=== PATIENT | male | born 1950 | race Caucasian/White ===

== ENCOUNTER 2022-10-14 06:18 | Inpatient (IN) | payer MEDICARE ==
[2022-10-14 07:13] LABS: #Eosinphils 0.2 thou/uL (0.0-0.7); #Lymphocytes 0.8 thou/uL (1.20-3.40); #Monocytes 0.2 thou/uL (0.11-0.59); #Neutrophils 5.2 thou/uL (1.40-6.50); %Basophils 0.2 % (0.0-1.0); %Eosinophils 2.7 % (0.0-10.0); %Lymphocytes 12.7 % (21.0-51.0); %Monocytes 3.8 % (0.0-10.0); %Neutrophils 80.7 % (42.0-75.0); Hemoglobin 11.2 g/dL (14.0-18.0); Mean Corpuscular HGB CONC 34.3 g/dL (32.0-36.0); Mean Corpuscular Hemoglobin 32.4 pg (27.0-31.0); Mean Corpuscular Volume 94.4 fl (78.0-98.0); Mean Platelet Volume 7.2 fL (7.4-10.4); Platelet Count 283 10x3/uL (130-400); RBC Distribution Width 11.8 % (11.5-14.5); Red Blood Cell (RBC) Count 3.46 mill/uL (4.70-6.10); White Blood Cell (WBC) Count 6.4 10x3/uL (4.8-10.8)
[2022-10-14] MEDS ORDERED: diphenhydrAMINE 50 MG/ML VIAL ONE (07:17)
[2022-10-14] MEDS ORDERED: Ketorolac Tromethamine 30 MG/ML VIAL ONE ×2 (07:17→16:49)
[2022-10-14] MEDS ORDERED: hydrALAZINE 20 MG/ML VIAL ONE (07:17)
[2022-10-14] MEDS ORDERED: Metoclopramide HCl 10 MG/2 ML VIAL ONE (07:17)
[2022-10-14 07:32] LABS: ALT (SGPT) Less than 7 U/L (8-55); AST (SGOT) 12 U/L (5-34); Albumin 2.7 g/dL (3.4-4.8); Alkaline Phosphatase 90 U/L (40-110); Anion Gap 14 mmol/L (10-20); BUN (Urea Nitrogen) 10 mg/dL (8.4-25.7); Bilirubin, Total 0.5 mg/dL (0.2-1.2); Calc. Creatinine Clearance 0 mL/min (70-130); Calcium 8.6 mg/dL (7.8-10.44); Carbon Dioxide 22 mmol/L (23-31); Chloride 103 mmol/L (98-107); Estimated GFR 75; Globulin 4.5 g/dL (2.4-3.5); Glucose 100 mg/dL (83-110); Potassium 4.6 mmol/L (3.5-5.1); Protein, Total 7.2 g/dL (5.8-8.1); Sodium 134 mmol/L (136-145)
[2022-10-14] MEDS ORDERED: Ipratropium/Albuterol 3 ML NEB ONE (08:34)
[2022-10-14] MEDS ORDERED: Magnesium 2 GM/50 ML BAG (IN WATER) ONE (09:27)
[2022-10-14 11:46] LABS: Troponin I 0.014 ng/mL (< 0.028)
[2022-10-14] MEDS ORDERED: Lidocaine 1% w/Epinephrine 1:100K 20 ML VIAL ONE (12:13)
[2022-10-14] MEDS ORDERED: Acetaminophen/Codeine 30-300mg Tablet PO SCH (14:00)
[2022-10-14] MEDS ORDERED: Acetaminophen/Codeine 30-300mg Tablet ONE (14:59)
[2022-10-14] MEDS ORDERED: Ondansetron ODT 4 MG TAB PO PRN (15:40)
[2022-10-14] MEDS ORDERED: hydrALAZINE 20 MG/ML VIAL SLOW IVP PRN (15:40)
[2022-10-14] MEDS ORDERED: Ondansetron PF 4 MG/2 ML Vial IVP PRN (15:40)
[2022-10-14] MEDS ORDERED: Labetalol HCl 100 MG/20 ML VIAL SLOW IVP PRN (15:40)
[2022-10-14] MEDS ORDERED: CEFAZOLIN 2 GM VIAL IVPB SCH (15:40)
[2022-10-14] MEDS ORDERED: HYDROcodone/Acetaminophen 10/325 mg Tablet PO PRN ×2 (15:40)
[2022-10-14] MEDS ORDERED: Albuterol HFA (OR) 200 PUFF INH INH PRN (15:59)
[2022-10-14] MEDS: Ketorolac Tromethamine 30 MG/ML VIAL IVP SCH (16:57)
[2022-10-14] MEDS ORDERED: Ketorolac Tromethamine 30 MG/ML VIAL IVP SCH (18:00)
[2022-10-14] MEDS: CEFAZOLIN 2 GM in Sodium Chloride 0.9% 100 ML IVPB SCH (18:25)
[2022-10-14 18:46] VITALS: BMI 27.1
[2022-10-14] MEDS: cloNIDine 0.1 MG TAB PO SCH (21:49)
[2022-10-14] MEDS: Famotidine 20 MG TAB PO SCH (21:49)
[2022-10-14] MEDS: Senokot S 8.6-50 MG TAB PO SCH (21:49)
[2022-10-15] MEDS: CEFAZOLIN 2 GM in Sodium Chloride 0.9% 100 ML IVPB SCH ×3 (00:31→16:19)
[2022-10-15] MEDS: Ketorolac Tromethamine 30 MG/ML VIAL IVP SCH ×5 (00:34→18:04)
[2022-10-15] MEDS: Mometasone 100 MCG/PUFF (1 INHALER) INH SCH ×3 (02:26→19:00)
[2022-10-15] MEDS: Acetaminophen 500 MG TAB PO PRN (06:26)
[2022-10-15 07:58] LABS: #Eosinphils 0.1 thou/uL (0.0-0.7); #Lymphocytes 0.9 thou/uL (1.20-3.40); #Monocytes 0.4 thou/uL (0.11-0.59); #Neutrophils 5.6 thou/uL (1.40-6.50); %Basophils 0.4 % (0.0-1.0); %Eosinophils 1.2 % (0.0-10.0); %Lymphocytes 13.4 % (21.0-51.0); %Monocytes 5.2 % (0.0-10.0); %Neutrophils 79.9 % (42.0-75.0); Hemoglobin 10.5 g/dL (14.0-18.0); Mean Corpuscular Hemoglobin 30.1 pg (27.0-31.0); Mean Corpuscular Volume 94.1 fl (78.0-98.0); Mean Platelet Volume 6.7 fL (7.4-10.4); Platelet Count 304 10x3/uL (130-400); RBC Distribution Width 11.8 % (11.5-14.5)
[2022-10-15 07:59] LABS: Anion Gap 12 mmol/L (10-20); BUN (Urea Nitrogen) 13 mg/dL (8.4-25.7); Calc. Creatinine Clearance 87 mL/min (70-130); Calcium 8.3 mg/dL (7.8-10.44); Carbon Dioxide 23 mmol/L (23-31); Chloride 103 mmol/L (98-107); Estimated GFR 81; Glucose 88 mg/dL (83-110); Sodium 134 mmol/L (136-145)
[2022-10-15] MEDS: Atorvastatin Calcium 10 MG TAB PO SCH (08:36)
[2022-10-15] MEDS: FLUoxetine HCl 20 MG CAP PO SCH (08:36)
[2022-10-15] MEDS: Famotidine 20 MG TAB PO SCH ×2 (08:36→20:21)
[2022-10-15] MEDS: Senokot S 8.6-50 MG TAB PO SCH ×2 (08:37→20:21)
[2022-10-15] MEDS: Ezetimibe 10 MG TAB PO SCH (08:37)
[2022-10-15] MEDS: cloNIDine 0.1 MG TAB PO SCH ×2 (08:37→20:21)
[2022-10-15] MEDS: tiZANidine HCl 4 MG TAB PO PRN (09:28)
[2022-10-16] MEDS: Ketorolac Tromethamine 30 MG/ML VIAL IVP SCH ×4 (00:29→19:05)
[2022-10-16] MEDS: CEFAZOLIN 2 GM in Sodium Chloride 0.9% 100 ML IVPB SCH ×3 (01:26→17:21)
[2022-10-16 06:56] LABS: #Eosinphils 0.1 thou/uL (0.0-0.7); #Monocytes 0.3 thou/uL (0.11-0.59); #Neutrophils 4.5 thou/uL (1.40-6.50); %Basophils 0.4 % (0.0-1.0); %Eosinophils 2.4 % (0.0-10.0); %Lymphocytes 16.2 % (21.0-51.0); %Monocytes 5.1 % (0.0-10.0); %Neutrophils 75.9 % (42.0-75.0); Hemoglobin 11.3 g/dL (14.0-18.0); Mean Corpuscular HGB CONC 33.4 g/dL (32.0-36.0); Mean Corpuscular Volume 92.8 fl (78.0-98.0); Platelet Count 264 10x3/uL (130-400); RBC Distribution Width 11.9 % (11.5-14.5); Red Blood Cell (RBC) Count 3.64 mill/uL (4.70-6.10); White Blood Cell (WBC) Count 5.9 10x3/uL (4.8-10.8)
[2022-10-16 07:07] LABS: Anion Gap 13 mmol/L (10-20); BUN (Urea Nitrogen) 12 mg/dL (8.4-25.7); Calc. Creatinine Clearance 101 mL/min (70-130); Calcium 8.4 mg/dL (7.8-10.44); Carbon Dioxide 22 mmol/L (23-31); Chloride 103 mmol/L (98-107); Estimated GFR 92; Glucose 91 mg/dL (83-110); Magnesium 1.8 mg/dL (1.6-2.6); Potassium 3.7 mmol/L (3.5-5.1); Sodium 134 mmol/L (136-145)
[2022-10-16] MEDS: Mometasone 100 MCG/PUFF (1 INHALER) INH SCH ×2 (08:44→18:40)
[2022-10-16] MEDS ORDERED: Sacubitril 49 MG/Valsartan 51 MG TABLET PO SCH (09:10)
[2022-10-16] MEDS: Famotidine 20 MG TAB PO SCH ×2 (09:20→20:55)
[2022-10-16] MEDS: FLUoxetine HCl 20 MG CAP PO SCH (09:21)
[2022-10-16] MEDS: cloNIDine 0.1 MG TAB PO SCH ×2 (09:21→20:55)
[2022-10-16] MEDS: Senokot S 8.6-50 MG TAB PO SCH ×2 (09:21→20:54)
[2022-10-16] MEDS: Ezetimibe 10 MG TAB PO SCH (09:21)
[2022-10-16] MEDS ORDERED: Aspirin 81 mg Enteric Coated Tablet PO SCH (09:23)
[2022-10-16] MEDS: Atorvastatin Calcium 10 MG TAB PO SCH (09:37)
[2022-10-16] MEDS ORDERED: Magnevist 469MG/ML 20 ML VIAL ONE (09:55)
[2022-10-16] MEDS ORDERED: Spironolactone 25 MG TAB PO SCH (16:45)
[2022-10-16] MEDS: Carvedilol 6.25 MG TAB PO SCH (17:21)
[2022-10-16] MEDS: tiZANidine HCl 4 MG TAB PO PRN (20:54)
[2022-10-16] MEDS: Atorvastatin Calcium 40 MG TAB PO SCH (20:54)
[2022-10-16] MEDS: Sacubitril 49 MG/Valsartan 51 MG TABLET PO SCH (20:55)
[2022-10-16] MEDS: Icosapent Ethyl 1 GM CAPSULE PO SCH (20:56)
[2022-10-16] MEDS ORDERED: Magnesium Oxide 400 MG TAB PO SCH (21:00)
[2022-10-16] MEDS ORDERED: Electrolyte Replacement Protocol 1 EACH FS SCH (22:45)
[2022-10-16] MEDS ORDERED: Magnesium 2 GM/50 ML(in water) 2 GM in Premix Bag 1 BAG IVPB SCH (23:30)
[2022-10-17] MEDS: CEFAZOLIN 2 GM in Sodium Chloride 0.9% 100 ML IVPB SCH ×2 (00:15→17:08)
[2022-10-17] MEDS: Ketorolac Tromethamine 30 MG/ML VIAL IVP SCH ×5 (00:16→23:46)
[2022-10-17 05:26] LABS: #Eosinphils 0.2 thou/uL (0.0-0.7); #Lymphocytes 1.1 thou/uL (1.20-3.40); #Monocytes 0.4 thou/uL (0.11-0.59); #Neutrophils 4.4 thou/uL (1.40-6.50); %Basophils 0.7 % (0.0-1.0); %Eosinophils 3.4 % (0.0-10.0); %Lymphocytes 18.1 % (21.0-51.0); %Monocytes 5.9 % (0.0-10.0); %Neutrophils 71.9 % (42.0-75.0); Mean Corpuscular HGB CONC 33.4 g/dL (32.0-36.0); Mean Corpuscular Hemoglobin 31.3 pg (27.0-31.0); Mean Corpuscular Volume 93.5 fl (78.0-98.0); Mean Platelet Volume 6.8 fL (7.4-10.4); Platelet Count 249 10x3/uL (130-400); RBC Distribution Width 11.9 % (11.5-14.5); Red Blood Cell (RBC) Count 3.52 mill/uL (4.70-6.10); White Blood Cell (WBC) Count 6.1 10x3/uL (4.8-10.8)
[2022-10-17 05:30] LABS: INR-International Normal Ratio 1.1; PTT 33.6 sec (22.9-36.1); Prothrombin Time 14.5 sec (12.0-14.7)
[2022-10-17 05:45] LABS: Anion Gap 9 mmol/L (10-20); BUN (Urea Nitrogen) 11 mg/dL (8.4-25.7); Calc. Creatinine Clearance 92 mL/min (70-130); Calcium 8.2 mg/dL (7.8-10.44); Carbon Dioxide 27 mmol/L (23-31); Chloride 103 mmol/L (98-107); Estimated GFR 87; Glucose 100 mg/dL (83-110); Magnesium 2.2 mg/dL (1.6-2.6); Potassium 3.7 mmol/L (3.5-5.1); Sodium 135 mmol/L (136-145)
[2022-10-17] MEDS ORDERED: Thrombin 5000 UNITS/5 ML VIAL ONE (06:40)
[2022-10-17] MEDS ORDERED: Bacitracin Zinc Ointment 30 gm TUBE ONE (06:40)
[2022-10-17] MEDS ORDERED: Vancomycin 1 GM VIAL ONE (06:40)
[2022-10-17] MEDS ORDERED: Fentanyl 250 MCG/5 ML VIAL ONE (06:53)
[2022-10-17] MEDS ORDERED: Dexmedetomidine 200 MCG/2 ML VIAL ONE (07:18)
[2022-10-17] MEDS: Mometasone 100 MCG/PUFF (1 INHALER) INH SCH ×2 (07:26→18:54)
[2022-10-17] MEDS ORDERED: CEFAZOLIN 1 GM VIAL ONE (07:30)
[2022-10-17] MEDS ORDERED: Sodium Chloride 0.9% 100 ML ONE (07:30)
[2022-10-17] MEDS ORDERED: CEFAZOLIN 2 GM VIAL ONE (07:31)
[2022-10-17] MEDS ORDERED: MINERAL OIL/WHITE PETROLATUM 3.5 GM TUBE ONE (07:56)
[2022-10-17] MEDS ORDERED: PROPOFOL 200 MG/20 ML VIAL ONE (08:03)
[2022-10-17] MEDS ORDERED: Dexamethasone 20 MG/5 ML VIAL ONE (08:03)
[2022-10-17] MEDS ORDERED: Lidocaine 1% PF 5 ML VIAL ONE (08:03)
[2022-10-17] MEDS ORDERED: Ondansetron PF 4 MG/2 ML Vial ONE (08:03)
[2022-10-17] MEDS ORDERED: Rocuronium Bromide 10 MG/ML (10ML VIAL) ONE (08:03)
[2022-10-17] MEDS ORDERED: ePHEDrine Sulfate 50 MG/10 ML VIAL ONE (08:03)
[2022-10-17] MEDS ORDERED: Aspirin 81 mg Enteric Coated Tablet PO SCH (09:00)
[2022-10-17] MEDS ORDERED: Promethazine HCl 25 MG/ML VIAL IM PRN (09:05)
[2022-10-17] MEDS ORDERED: Ondansetron HCl/PF 4 MG/2 ML Vial IVP PRN (09:05)
[2022-10-17] MEDS ORDERED: PACU-Morphine 4MG/ML VIAL SLOW IVP PRN (09:05)
[2022-10-17] MEDS ORDERED: SUGAMMADEX SODIUM 200 MG/2 ML VIAL ONE (09:12)
[2022-10-17] MEDS ORDERED: fentaNYL PF 100 MCG/2 ML SYRINGE ONE ×2 (10:05→10:49)
[2022-10-17] MEDS ORDERED: diphenhydrAMINE 25 MG CAP PO PRN (10:36)
[2022-10-17] MEDS ORDERED: Promethazine HCl 25 MG/ML VIAL IVPB PRN (10:36)
[2022-10-17] MEDS ORDERED: Morphine 2 MG/ML VIAL SLOW IVP PRN (10:36)
[2022-10-17] MEDS ORDERED: VANCOMYCIN IVPB PRN (10:39)
[2022-10-17] MEDS ORDERED: Labetalol HCl 100 MG/20 ML VIAL SLOW IVP PRN (10:42)
[2022-10-17] MEDS ORDERED: hydrALAZINE 20 MG/ML VIAL ONE (10:43)
[2022-10-17] MEDS ORDERED: fentaNYL 50 mcg/mL 1 mL Vial ONE ×2 (11:11→11:48)
[2022-10-17] MEDS ORDERED: Morphine 4 MG/ML VIAL ONE (12:02)
[2022-10-17] MEDS: Sodium Chloride 0.9% 1,000 ML IV SCH (12:07)
[2022-10-17] MEDS: Cefepime 2 GM in Sodium Chloride 0.9% 100 ML IVPB SCH ×2 (12:07→23:46)
[2022-10-17] MEDS ORDERED: Ketorolac Tromethamine 30 MG/ML VIAL ONE (13:08)
[2022-10-17] MEDS ORDERED: metroNIDAZOLE 500 MG/100 ML BAG ONE (13:18)
[2022-10-17] MEDS ORDERED: Acetaminophen/Codeine 30-300mg Tablet ONE (13:29)
[2022-10-17] MEDS: Acetaminophen/Codeine 30-300mg Tablet PO PRN ×2 (13:30→17:33)
[2022-10-17] MEDS: metroNIDAZOLE 500 MG in Premix Bag 1 BAG IVPB SCH ×2 (13:33→20:40)
[2022-10-17] MEDS ORDERED: diphenhydrAMINE 25 MG CAP ONE (13:50)
[2022-10-17] MEDS: tiZANidine HCl 4 MG TAB PO PRN ×2 (14:27→19:26)
[2022-10-17] MEDS: Carvedilol 6.25 MG TAB PO SCH ×2 (17:02→17:34)
[2022-10-17] MEDS: cloNIDine 0.1 MG TAB PO SCH ×2 (17:03→21:05)
[2022-10-17] MEDS: Magnesium Oxide 400 MG TAB PO SCH (17:03)
[2022-10-17] MEDS: Ezetimibe 10 MG TAB PO SCH (17:03)
[2022-10-17] MEDS: FLUoxetine HCl 20 MG CAP PO SCH (17:03)
[2022-10-17] MEDS: Famotidine 20 MG TAB PO SCH ×2 (17:03→20:35)
[2022-10-17] MEDS: Icosapent Ethyl 1 GM CAPSULE PO SCH (17:03)
[2022-10-17] MEDS: Senokot S 8.6-50 MG TAB PO SCH ×2 (17:04→20:35)
[2022-10-17] MEDS: Sacubitril 49 MG/Valsartan 51 MG TABLET PO SCH ×2 (17:04→20:35)
[2022-10-17] MEDS: Vancomycin 1 GM in Premix Bag 1 BAG IVPB SCH (17:34)
[2022-10-17] MEDS: hydrALAZINE 20 MG/ML VIAL SLOW IVP PRN (18:39)
[2022-10-17] MEDS: Atorvastatin Calcium 40 MG TAB PO SCH (20:35)
[2022-10-18] MEDS: Sodium Chloride 0.9% 1,000 ML IV SCH ×3 (00:23→17:02)
[2022-10-18 03:33] LABS: #Lymphocytes 0.7 thou/uL (1.20-3.40); #Monocytes 0.3 thou/uL (0.11-0.59); #Neutrophils 4.9 thou/uL (1.40-6.50); %Basophils 0.5 % (0.0-1.0); %Eosinophils 0.4 % (0.0-10.0); %Lymphocytes 12.2 % (21.0-51.0); %Monocytes 5.5 % (0.0-10.0); %Neutrophils 81.5 % (42.0-75.0); Hemoglobin 11.2 g/dL (14.0-18.0); Mean Corpuscular HGB CONC 34.3 g/dL (32.0-36.0); Mean Corpuscular Hemoglobin 32.6 pg (27.0-31.0); Platelet Count 228 10x3/uL (130-400); RBC Distribution Width 11.9 % (11.5-14.5); Red Blood Cell (RBC) Count 3.44 mill/uL (4.70-6.10)
[2022-10-18 03:58] LABS: Anion Gap 10 mmol/L (10-20); BUN (Urea Nitrogen) 12 mg/dL (8.4-25.7); Calc. Creatinine Clearance 96 mL/min (70-130); Calcium 8.4 mg/dL (7.8-10.44); Carbon Dioxide 24 mmol/L (23-31); Chloride 105 mmol/L (98-107); Estimated GFR 91; Glucose 114 mg/dL (83-110); Potassium 4.2 mmol/L (3.5-5.1); Sodium 135 mmol/L (136-145)
[2022-10-18] MEDS: hydrALAZINE 20 MG/ML VIAL SLOW IVP PRN (05:14)
[2022-10-18] MEDS: Vancomycin 1 GM in Premix Bag 1 BAG IVPB SCH ×2 (05:15→19:54)
[2022-10-18] MEDS: metroNIDAZOLE 500 MG in Premix Bag 1 BAG IVPB SCH ×3 (05:15→21:22)
[2022-10-18] MEDS: Ketorolac Tromethamine 30 MG/ML VIAL IVP SCH ×4 (05:16→23:26)
[2022-10-18] MEDS: Mometasone 100 MCG/PUFF (1 INHALER) INH SCH ×2 (07:47→19:41)
[2022-10-18] MEDS: FLUoxetine HCl 20 MG CAP PO SCH (08:20)
[2022-10-18] MEDS: Ezetimibe 10 MG TAB PO SCH (08:25)
[2022-10-18] MEDS: Carvedilol 6.25 MG TAB PO SCH ×2 (08:25→17:01)
[2022-10-18] MEDS: Famotidine 20 MG TAB PO SCH ×2 (08:25→21:22)
[2022-10-18] MEDS: Sacubitril 49 MG/Valsartan 51 MG TABLET PO SCH ×2 (08:26→21:21)
[2022-10-18] MEDS: cloNIDine 0.1 MG TAB PO SCH ×2 (08:26→21:21)
[2022-10-18] MEDS: Senokot S 8.6-50 MG TAB PO SCH ×2 (08:27→21:22)
[2022-10-18] MEDS: Magnesium Oxide 400 MG TAB PO SCH (08:28)
[2022-10-18] MEDS: Cefepime 2 GM in Sodium Chloride 0.9% 100 ML IVPB SCH ×2 (11:25→23:26)
[2022-10-18 18:45] LABS: Vancomycin, Trough 14.7 ug/mL
[2022-10-18] MEDS: Atorvastatin Calcium 40 MG TAB PO SCH (21:21)
[2022-10-19] MEDS: Sodium Chloride 0.9% 1,000 ML IV SCH ×2 (04:34→19:00)
[2022-10-19] MEDS: metroNIDAZOLE 500 MG in Premix Bag 1 BAG IVPB SCH ×3 (06:17→21:28)
[2022-10-19] MEDS: Ketorolac Tromethamine 30 MG/ML VIAL IVP SCH ×3 (06:17→17:38)
[2022-10-19] MEDS: Vancomycin 1 GM in Premix Bag 1 BAG IVPB SCH ×2 (06:18→17:38)
[2022-10-19] MEDS: Sacubitril 49 MG/Valsartan 51 MG TABLET PO SCH ×2 (08:33→20:49)
[2022-10-19] MEDS: Carvedilol 6.25 MG TAB PO SCH ×2 (08:34→17:38)
[2022-10-19] MEDS: cloNIDine 0.1 MG TAB PO SCH ×2 (08:34→20:50)
[2022-10-19] MEDS: FLUoxetine HCl 20 MG CAP PO SCH (08:34)
[2022-10-19] MEDS: Ezetimibe 10 MG TAB PO SCH (08:34)
[2022-10-19] MEDS: Senokot S 8.6-50 MG TAB PO SCH ×2 (08:34→20:52)
[2022-10-19] MEDS: Magnesium Oxide 400 MG TAB PO SCH (08:35)
[2022-10-19] MEDS: Famotidine 20 MG TAB PO SCH ×2 (08:35→20:51)
[2022-10-19] MEDS: Mometasone 100 MCG/PUFF (1 INHALER) INH SCH ×2 (08:39→21:39)
[2022-10-19] MEDS: Cefepime 2 GM in Sodium Chloride 0.9% 100 ML IVPB SCH (13:19)
[2022-10-19] MEDS: hydrALAZINE 20 MG/ML VIAL SLOW IVP PRN (13:28)
[2022-10-19] MEDS: Atorvastatin Calcium 40 MG TAB PO SCH (20:50)
[2022-10-19] MEDS: Tamsulosin HCl 0.4 MG CAP PO SCH (20:51)
[2022-10-20] MEDS: Cefepime 2 GM in Sodium Chloride 0.9% 100 ML IVPB SCH ×2 (00:03→13:32)
[2022-10-20] MEDS: Ketorolac Tromethamine 30 MG/ML VIAL IVP SCH (00:04)
[2022-10-20 05:14] LABS: #Basophils 0.1 thou/uL (0.0-0.2); #Eosinphils 0.2 thou/uL (0.0-0.7); #Monocytes 0.4 thou/uL (0.11-0.59); %Basophils 1.1 % (0.0-1.0); %Eosinophils 3.1 % (0.0-10.0); %Lymphocytes 18.1 % (21.0-51.0); %Monocytes 6.5 % (0.0-10.0); %Neutrophils 71.1 % (42.0-75.0); Hemoglobin 10.1 g/dL (14.0-18.0); Mean Corpuscular HGB CONC 33.5 g/dL (32.0-36.0); Mean Corpuscular Hemoglobin 31.4 pg (27.0-31.0); Mean Corpuscular Volume 93.9 fl (78.0-98.0); Mean Platelet Volume 7.2 fL (7.4-10.4); Platelet Count 211 10x3/uL (130-400); RBC Distribution Width 12.1 % (11.5-14.5); White Blood Cell (WBC) Count 5.6 10x3/uL (4.8-10.8)
[2022-10-20 05:35] LABS: ALT (SGPT) 10 U/L (8-55); AST (SGOT) 27 U/L (5-34); Albumin 2.4 g/dL (3.4-4.8); Alkaline Phosphatase 77 U/L (40-110); Anion Gap 9 mmol/L (10-20); BUN (Urea Nitrogen) 14 mg/dL (8.4-25.7); Bilirubin, Total 0.6 mg/dL (0.2-1.2); Calc. Creatinine Clearance 94 mL/min (70-130); Carbon Dioxide 24 mmol/L (23-31); Chloride 108 mmol/L (98-107); Estimated GFR 90; Globulin 3.5 g/dL (2.4-3.5); Glucose 90 mg/dL (83-110); Potassium 3.8 mmol/L (3.5-5.1); Protein, Total 5.9 g/dL (5.8-8.1); Sodium 137 mmol/L (136-145)
[2022-10-20] MEDS: metroNIDAZOLE 500 MG in Premix Bag 1 BAG IVPB SCH ×3 (05:48→21:23)
[2022-10-20] MEDS: Sodium Chloride 0.9% 1,000 ML IV SCH (05:49)
[2022-10-20 06:02] LABS: Vancomycin, Trough 19.9 ug/mL
[2022-10-20] MEDS: Vancomycin 1 GM in Premix Bag 1 BAG IVPB SCH ×2 (06:09→17:01)
[2022-10-20] MEDS: Mometasone 100 MCG/PUFF (1 INHALER) INH SCH ×2 (07:41→19:08)
[2022-10-20] MEDS ORDERED: Bisacodyl 5 MG TAB PO SCH (09:37)
[2022-10-20] MEDS: FLUoxetine HCl 20 MG CAP PO SCH (09:44)
[2022-10-20] MEDS: cloNIDine 0.1 MG TAB PO SCH ×2 (09:44→20:26)
[2022-10-20] MEDS: Carvedilol 6.25 MG TAB PO SCH ×2 (09:44→16:53)
[2022-10-20] MEDS: Sacubitril 49 MG/Valsartan 51 MG TABLET PO SCH ×2 (09:44→20:27)
[2022-10-20] MEDS: Ezetimibe 10 MG TAB PO SCH (09:44)
[2022-10-20] MEDS: Senokot S 8.6-50 MG TAB PO SCH ×2 (09:44→20:27)
[2022-10-20] MEDS: Famotidine 20 MG TAB PO SCH ×2 (09:44→20:26)
[2022-10-20] MEDS: Magnesium Oxide 400 MG TAB PO SCH (09:45)
[2022-10-20] MEDS: Finasteride 5 MG TAB PO SCH (09:45)
[2022-10-20] MEDS: Atorvastatin Calcium 40 MG TAB PO SCH (20:25)
[2022-10-20] MEDS: Tamsulosin HCl 0.4 MG CAP PO SCH (20:27)
[2022-10-20] MEDS: tiZANidine HCl 4 MG TAB PO PRN (20:32)
[2022-10-21] MEDS: Cefepime 2 GM in Sodium Chloride 0.9% 100 ML IVPB SCH (00:23)
[2022-10-21] MEDS: Vancomycin 1 GM in Premix Bag 1 BAG IVPB SCH (05:15)
[2022-10-21] MEDS: metroNIDAZOLE 500 MG in Premix Bag 1 BAG IVPB SCH (05:15)
[2022-10-21 05:39] LABS: #Eosinphils 0.2 thou/uL (0.0-0.7); #Lymphocytes 1.1 thou/uL (1.20-3.40); #Monocytes 0.4 thou/uL (0.11-0.59); %Basophils 0.3 % (0.0-1.0); %Eosinophils 3.4 % (0.0-10.0); %Monocytes 6.5 % (0.0-10.0); %Neutrophils 70.7 % (42.0-75.0); Hemoglobin 9.4 g/dL (14.0-18.0); Mean Corpuscular HGB CONC 32.1 g/dL (32.0-36.0); Mean Corpuscular Hemoglobin 30.4 pg (27.0-31.0); Mean Corpuscular Volume 94.6 fl (78.0-98.0); Mean Platelet Volume 6.9 fL (7.4-10.4); Platelet Count 220 10x3/uL (130-400); RBC Distribution Width 11.9 % (11.5-14.5); White Blood Cell (WBC) Count 5.6 10x3/uL (4.8-10.8)
[2022-10-21 06:09] LABS: Anion Gap 7 mmol/L (10-20); BUN (Urea Nitrogen) 13 mg/dL (8.4-25.7); Calc. Creatinine Clearance 0 mL/min (70-130); Carbon Dioxide 25 mmol/L (23-31); Chloride 109 mmol/L (98-107); Estimated GFR 91; Glucose 102 mg/dL (83-110); Potassium 3.8 mmol/L (3.5-5.1); Sodium 137 mmol/L (136-145)
[2022-10-21] MEDS: hydrALAZINE 20 MG/ML VIAL SLOW IVP PRN (07:38)
[2022-10-21] MEDS: Mometasone 100 MCG/PUFF (1 INHALER) INH SCH ×2 (08:21→18:08)
[2022-10-21] MEDS: cloNIDine 0.1 MG TAB PO SCH ×2 (08:33→20:57)
[2022-10-21] MEDS: Magnesium Oxide 400 MG TAB PO SCH (08:33)
[2022-10-21] MEDS: FLUoxetine HCl 20 MG CAP PO SCH (08:33)
[2022-10-21] MEDS: Finasteride 5 MG TAB PO SCH (08:34)
[2022-10-21] MEDS: Famotidine 20 MG TAB PO SCH ×2 (08:34→20:57)
[2022-10-21] MEDS: Senokot S 8.6-50 MG TAB PO SCH ×2 (08:34→20:57)
[2022-10-21] MEDS: Ezetimibe 10 MG TAB PO SCH (08:34)
[2022-10-21] MEDS: Carvedilol 6.25 MG TAB PO SCH ×2 (08:34→16:58)
[2022-10-21] MEDS: Sacubitril 49 MG/Valsartan 51 MG TABLET PO SCH ×2 (11:56→22:06)
[2022-10-21] MEDS: CEFAZOLIN 1 GM in Sodium Chloride 0.9% 100 ML IVPB SCH ×2 (13:15→20:56)
[2022-10-21] MEDS: Atorvastatin Calcium 40 MG TAB PO SCH (20:57)
[2022-10-21] MEDS: Tamsulosin HCl 0.4 MG CAP PO SCH (20:57)
[2022-10-22 05:35] LABS: #Eosinphils 0.1 thou/uL (0.0-0.7); #Lymphocytes 1.1 thou/uL (1.20-3.40); #Monocytes 0.4 thou/uL (0.11-0.59); #Neutrophils 4.6 thou/uL (1.40-6.50); %Basophils 0.5 % (0.0-1.0); %Eosinophils 2.1 % (0.0-10.0); %Lymphocytes 17.2 % (21.0-51.0); %Monocytes 6.5 % (0.0-10.0); %Neutrophils 73.7 % (42.0-75.0); Hemoglobin 9.8 g/dL (14.0-18.0); Mean Corpuscular HGB CONC 34.2 g/dL (32.0-36.0); Mean Corpuscular Hemoglobin 31.8 pg (27.0-31.0); Mean Corpuscular Volume 92.9 fl (78.0-98.0); Mean Platelet Volume 7.8 fL (7.4-10.4); Platelet Count 187 10x3/uL (130-400); RBC Distribution Width 11.9 % (11.5-14.5); Red Blood Cell (RBC) Count 3.08 mill/uL (4.70-6.10); White Blood Cell (WBC) Count 6.2 10x3/uL (4.8-10.8)
[2022-10-22 05:51] LABS: Anion Gap 10 mmol/L (10-20); BUN (Urea Nitrogen) 13 mg/dL (8.4-25.7); Calc. Creatinine Clearance 97 mL/min (70-130); Calcium 8.2 mg/dL (7.8-10.44); Carbon Dioxide 21 mmol/L (23-31); Chloride 108 mmol/L (98-107); Estimated GFR 91; Glucose 92 mg/dL (83-110); Potassium 3.8 mmol/L (3.5-5.1); Sodium 135 mmol/L (136-145)
[2022-10-22] MEDS: CEFAZOLIN 1 GM in Sodium Chloride 0.9% 100 ML IVPB SCH ×3 (06:20→22:18)
[2022-10-22] MEDS: Mometasone 100 MCG/PUFF (1 INHALER) INH SCH ×2 (07:10→18:50)
[2022-10-22] MEDS: Carvedilol 6.25 MG TAB PO SCH ×2 (07:56→16:19)
[2022-10-22] MEDS: Spironolactone 25 MG TAB PO SCH (07:56)
[2022-10-22] MEDS: Senokot S 8.6-50 MG TAB PO SCH ×2 (07:57→21:11)
[2022-10-22] MEDS: Finasteride 5 MG TAB PO SCH (07:57)
[2022-10-22] MEDS: Ezetimibe 10 MG TAB PO SCH (07:58)
[2022-10-22] MEDS: cloNIDine 0.1 MG TAB PO SCH ×2 (07:58→21:11)
[2022-10-22] MEDS: Famotidine 20 MG TAB PO SCH ×2 (07:58→21:11)
[2022-10-22] MEDS: Magnesium Oxide 400 MG TAB PO SCH (07:58)
[2022-10-22] MEDS: FLUoxetine HCl 20 MG CAP PO SCH (07:59)
[2022-10-22] MEDS: Sacubitril 49 MG/Valsartan 51 MG TABLET PO SCH ×2 (07:59→21:11)
[2022-10-22] MEDS ORDERED: Bisacodyl 5 MG TAB PO PRN (08:54)
[2022-10-22] MEDS ORDERED: Bisacodyl 5 MG TAB PO SCH (09:00)
[2022-10-22] MEDS: hydrALAZINE 20 MG/ML VIAL SLOW IVP PRN ×2 (16:39→21:10)
[2022-10-22] MEDS ORDERED: hydrALAZINE 20 MG/ML VIAL SLOW IVP PRN (19:57)
[2022-10-22] MEDS: Tamsulosin HCl 0.4 MG CAP PO SCH (21:11)
[2022-10-22] MEDS: Atorvastatin Calcium 40 MG TAB PO SCH (21:11)
[2022-10-23 04:19] LABS: Anion Gap 10 mmol/L (10-20); BUN (Urea Nitrogen) 12 mg/dL (8.4-25.7); Calc. Creatinine Clearance 102 mL/min (70-130); Calcium 8.4 mg/dL (7.8-10.44); Carbon Dioxide 24 mmol/L (23-31); Chloride 107 mmol/L (98-107); Estimated GFR 92; Glucose 93 mg/dL (83-110); Magnesium 1.7 mg/dL (1.6-2.6); Potassium 3.8 mmol/L (3.5-5.1); Sodium 137 mmol/L (136-145)
[2022-10-23] MEDS ORDERED: Magnesium 2 GM/50 ML(in water) 2 GM in Premix Bag 1 BAG IVPB SCH (05:30)
[2022-10-23] MEDS: CEFAZOLIN 1 GM in Sodium Chloride 0.9% 100 ML IVPB SCH ×3 (06:14→23:13)
[2022-10-23] MEDS: Mometasone 100 MCG/PUFF (1 INHALER) INH SCH ×2 (07:05→18:51)
[2022-10-23] MEDS: cloNIDine 0.1 MG TAB PO SCH ×2 (08:55→21:30)
[2022-10-23] MEDS: Magnesium Oxide 400 MG TAB PO SCH (08:55)
[2022-10-23] MEDS: Finasteride 5 MG TAB PO SCH (08:55)
[2022-10-23] MEDS: FLUoxetine HCl 20 MG CAP PO SCH (08:55)
[2022-10-23] MEDS: Ezetimibe 10 MG TAB PO SCH (08:56)
[2022-10-23] MEDS: Carvedilol 6.25 MG TAB PO SCH ×2 (08:56→17:01)
[2022-10-23] MEDS: Sacubitril 49 MG/Valsartan 51 MG TABLET PO SCH ×2 (08:56→21:31)
[2022-10-23] MEDS: Spironolactone 25 MG TAB PO SCH ×2 (08:56→08:57)
[2022-10-23] MEDS: Famotidine 20 MG TAB PO SCH ×2 (08:56→21:29)
[2022-10-23] MEDS: Senokot S 8.6-50 MG TAB PO SCH ×2 (08:57→21:32)
[2022-10-23] MEDS: Atorvastatin Calcium 40 MG TAB PO SCH (21:29)
[2022-10-23] MEDS: Tamsulosin HCl 0.4 MG CAP PO SCH (21:32)
[2022-10-24 04:09] LABS: #Basophils 0.1 thou/uL (0.0-0.2); #Eosinphils 0.1 thou/uL (0.0-0.7); #Lymphocytes 1.2 thou/uL (1.20-3.40); #Monocytes 0.4 thou/uL (0.11-0.59); #Neutrophils 3.9 thou/uL (1.40-6.50); %Eosinophils 1.6 % (0.0-10.0); %Lymphocytes 20.9 % (21.0-51.0); %Monocytes 7.7 % (0.0-10.0); %Neutrophils 68.8 % (42.0-75.0); Hemoglobin 10.4 g/dL (14.0-18.0); Mean Corpuscular HGB CONC 33.4 g/dL (32.0-36.0); Mean Corpuscular Hemoglobin 31.2 pg (27.0-31.0); Mean Corpuscular Volume 93.3 fl (78.0-98.0); Mean Platelet Volume 7.2 fL (7.4-10.4); Platelet Count 213 10x3/uL (130-400); RBC Distribution Width 12.1 % (11.5-14.5); Red Blood Cell (RBC) Count 3.32 mill/uL (4.70-6.10); White Blood Cell (WBC) Count 5.6 10x3/uL (4.8-10.8)
[2022-10-24 04:29] LABS: Anion Gap 9 mmol/L (10-20); BUN (Urea Nitrogen) 11 mg/dL (8.4-25.7); Calc. Creatinine Clearance 108 mL/min (70-130); Calcium 8.2 mg/dL (7.8-10.44); Carbon Dioxide 23 mmol/L (23-31); Chloride 105 mmol/L (98-107); Estimated GFR 94; Glucose 95 mg/dL (83-110); Magnesium 1.8 mg/dL (1.6-2.6); Potassium 3.4 mmol/L (3.5-5.1); Sodium 134 mmol/L (136-145)
[2022-10-24] MEDS ORDERED: Potassium Chloride 20 MEQ TAB PO SCH (05:30)
[2022-10-24] MEDS ORDERED: Magnesium 2 GM/50 ML(in water) 2 GM in Premix Bag 1 BAG IVPB SCH (05:30)
[2022-10-24] MEDS: CEFAZOLIN 1 GM in Sodium Chloride 0.9% 100 ML IVPB SCH ×3 (05:46→23:26)
[2022-10-24] MEDS: Mometasone 100 MCG/PUFF (1 INHALER) INH SCH ×2 (06:40→19:12)
[2022-10-24] MEDS: cloNIDine 0.1 MG TAB PO SCH ×2 (09:19→21:09)
[2022-10-24] MEDS: Magnesium Oxide 400 MG TAB PO SCH (09:19)
[2022-10-24] MEDS: Sacubitril 49 MG/Valsartan 51 MG TABLET PO SCH ×2 (09:19→21:08)
[2022-10-24] MEDS: FLUoxetine HCl 20 MG CAP PO SCH (09:19)
[2022-10-24] MEDS: Spironolactone 25 MG TAB PO SCH (09:19)
[2022-10-24] MEDS: Finasteride 5 MG TAB PO SCH (09:20)
[2022-10-24] MEDS: Famotidine 20 MG TAB PO SCH ×2 (09:20→21:09)
[2022-10-24] MEDS: Carvedilol 6.25 MG TAB PO SCH ×2 (09:20→17:35)
[2022-10-24] MEDS: Senokot S 8.6-50 MG TAB PO SCH ×2 (09:20→21:09)
[2022-10-24] MEDS: Ezetimibe 10 MG TAB PO SCH (09:20)
[2022-10-24] MEDS: Tamsulosin HCl 0.4 MG CAP PO SCH (21:09)
[2022-10-24] MEDS: Atorvastatin Calcium 40 MG TAB PO SCH (21:09)
[2022-10-25] MEDS: CEFAZOLIN 1 GM in Sodium Chloride 0.9% 100 ML IVPB SCH ×3 (05:22→21:48)
[2022-10-25] MEDS: Mometasone 100 MCG/PUFF (1 INHALER) INH SCH ×2 (06:51→18:35)
[2022-10-25] MEDS: Carvedilol 6.25 MG TAB PO SCH ×2 (09:33→17:42)
[2022-10-25] MEDS: Spironolactone 25 MG TAB PO SCH (09:35)
[2022-10-25] MEDS: cloNIDine 0.1 MG TAB PO SCH ×2 (09:35→21:38)
[2022-10-25] MEDS: Ezetimibe 10 MG TAB PO SCH (09:36)
[2022-10-25] MEDS: FLUoxetine HCl 20 MG CAP PO SCH (09:36)
[2022-10-25] MEDS: Famotidine 20 MG TAB PO SCH ×2 (09:36→21:38)
[2022-10-25] MEDS: Finasteride 5 MG TAB PO SCH (09:36)
[2022-10-25] MEDS: Magnesium Oxide 400 MG TAB PO SCH (09:37)
[2022-10-25] MEDS: hydrALAZINE 25 MG TAB PO SCH ×2 (09:37→21:38)
[2022-10-25] MEDS: Senokot S 8.6-50 MG TAB PO SCH ×2 (09:38→21:38)
[2022-10-25] MEDS: Sacubitril 49 MG/Valsartan 51 MG TABLET PO SCH ×2 (09:38→21:39)
[2022-10-25] MEDS: Tamsulosin HCl 0.4 MG CAP PO SCH (21:37)
[2022-10-25] MEDS: Atorvastatin Calcium 40 MG TAB PO SCH (21:37)
[2022-10-26] MEDS: CEFAZOLIN 1 GM in Sodium Chloride 0.9% 100 ML IVPB SCH ×3 (06:22→21:05)
[2022-10-26] MEDS: Mometasone 100 MCG/PUFF (1 INHALER) INH SCH ×2 (07:39→18:52)
[2022-10-26 07:57] LABS: #Eosinphils 0.1 thou/uL (0.0-0.7); #Lymphocytes 1.3 thou/uL (1.20-3.40); #Monocytes 0.5 thou/uL (0.11-0.59); #Neutrophils 4.3 thou/uL (1.40-6.50); %Basophils 0.5 % (0.0-1.0); %Eosinophils 1.3 % (0.0-10.0); %Lymphocytes 20.7 % (21.0-51.0); %Monocytes 7.8 % (0.0-10.0); %Neutrophils 69.6 % (42.0-75.0); Hemoglobin 10.2 g/dL (14.0-18.0); Mean Corpuscular HGB CONC 31.9 g/dL (32.0-36.0); Mean Corpuscular Hemoglobin 29.8 pg (27.0-31.0); Mean Corpuscular Volume 93.5 fl (78.0-98.0); Mean Platelet Volume 7.1 fL (7.4-10.4); Platelet Count 198 10x3/uL (130-400); RBC Distribution Width 12.4 % (11.5-14.5); Red Blood Cell (RBC) Count 3.41 mill/uL (4.70-6.10); White Blood Cell (WBC) Count 6.2 10x3/uL (4.8-10.8)
[2022-10-26 08:17] LABS: ALT (SGPT) Less than 7 U/L (8-55); AST (SGOT) 8 U/L (5-34); Albumin 2.5 g/dL (3.4-4.8); Alkaline Phosphatase 90 U/L (40-110); Anion Gap 10 mmol/L (10-20); BUN (Urea Nitrogen) 9 mg/dL (8.4-25.7); Bilirubin, Total 0.6 mg/dL (0.2-1.2); Calc. Creatinine Clearance 91 mL/min (70-130); Calcium 8.6 mg/dL (7.8-10.44); Carbon Dioxide 27 mmol/L (23-31); Chloride 104 mmol/L (98-107); Estimated GFR 84; Globulin 3.6 g/dL (2.4-3.5); Glucose 101 mg/dL (83-110); Potassium 4.3 mmol/L (3.5-5.1); Protein, Total 6.1 g/dL (5.8-8.1); Sodium 137 mmol/L (136-145)
[2022-10-26] MEDS: Carvedilol 6.25 MG TAB PO SCH ×2 (09:35→16:32)
[2022-10-26] MEDS: Magnesium Oxide 400 MG TAB PO SCH (09:36)
[2022-10-26] MEDS: Spironolactone 25 MG TAB PO SCH (09:36)
[2022-10-26] MEDS: cloNIDine 0.1 MG TAB PO SCH ×2 (09:37→21:07)
[2022-10-26] MEDS: Famotidine 20 MG TAB PO SCH ×2 (09:37→21:07)
[2022-10-26] MEDS: Ezetimibe 10 MG TAB PO SCH (09:37)
[2022-10-26] MEDS: Finasteride 5 MG TAB PO SCH (09:38)
[2022-10-26] MEDS: FLUoxetine HCl 20 MG CAP PO SCH (09:38)
[2022-10-26] MEDS: Sacubitril 49 MG/Valsartan 51 MG TABLET PO SCH ×2 (09:40→21:06)
[2022-10-26] MEDS: Senokot S 8.6-50 MG TAB PO SCH ×2 (09:40→21:06)
[2022-10-26] MEDS ORDERED: Lidocaine 1% (PF) 30 ML VIAL ONE (10:01)
[2022-10-26] MEDS: hydrALAZINE 25 MG TAB PO SCH ×2 (12:11→21:06)
[2022-10-26] MEDS: Tamsulosin HCl 0.4 MG CAP PO SCH (21:05)
[2022-10-26] MEDS: Atorvastatin Calcium 40 MG TAB PO SCH (21:06)
[2022-10-27] MEDS: CEFAZOLIN 1 GM in Sodium Chloride 0.9% 100 ML IVPB SCH ×3 (05:26→21:18)
[2022-10-27] MEDS: Mometasone 100 MCG/PUFF (1 INHALER) INH SCH ×2 (07:49→19:22)
[2022-10-27] MEDS: cloNIDine 0.1 MG TAB PO SCH ×2 (08:50→21:18)
[2022-10-27] MEDS: Spironolactone 25 MG TAB PO SCH (08:50)
[2022-10-27] MEDS: Carvedilol 6.25 MG TAB PO SCH ×2 (08:50→17:16)
[2022-10-27] MEDS: Ezetimibe 10 MG TAB PO SCH (08:51)
[2022-10-27] MEDS: Famotidine 20 MG TAB PO SCH ×2 (08:51→21:18)
[2022-10-27] MEDS: FLUoxetine HCl 20 MG CAP PO SCH (08:52)
[2022-10-27] MEDS: Sacubitril 49 MG/Valsartan 51 MG TABLET PO SCH ×2 (08:52→21:17)
[2022-10-27] MEDS: Finasteride 5 MG TAB PO SCH (08:52)
[2022-10-27] MEDS: Magnesium Oxide 400 MG TAB PO SCH (08:52)
[2022-10-27] MEDS: Senokot S 8.6-50 MG TAB PO SCH ×2 (08:53→21:18)
[2022-10-27 09:09] LABS: Bacteria/HPF 3+ HPF (None Seen); RBC/HPF Greater than 50 HPF (0-3); Squamous Epithelial 0-3 HPF (0-3); WBC/HPF None Seen HPF (0-3)
[2022-10-27 10:41] LABS: Anion Gap 12 mmol/L (10-20); BUN (Urea Nitrogen) 10 mg/dL (8.4-25.7); Calc. Creatinine Clearance 82 mL/min (70-130); Calcium 8.7 mg/dL (7.8-10.44); Carbon Dioxide 26 mmol/L (23-31); Chloride 103 mmol/L (98-107); Estimated GFR 75; Glucose 105 mg/dL (83-110); Potassium 3.8 mmol/L (3.5-5.1); Sodium 137 mmol/L (136-145)
[2022-10-27] MEDS: hydrALAZINE 25 MG TAB PO SCH ×2 (12:01→21:17)
[2022-10-27] MEDS: Atorvastatin Calcium 40 MG TAB PO SCH (21:17)
[2022-10-27] MEDS: Tamsulosin HCl 0.4 MG CAP PO SCH (21:18)
[2022-10-27] MEDS: tiZANidine HCl 4 MG TAB PO PRN (23:24)
[2022-10-28] MEDS ORDERED: Sodium Chloride 0.9% 250 ML 250 ML IV SCH (02:30)
[2022-10-28 04:18] LABS: Anion Gap 13 mmol/L (10-20); BUN (Urea Nitrogen) 12 mg/dL (8.4-25.7); Calc. Creatinine Clearance 80 mL/min (70-130); Calcium 8.4 mg/dL (7.8-10.44); Carbon Dioxide 22 mmol/L (23-31); Chloride 105 mmol/L (98-107); Estimated GFR 73; Glucose 97 mg/dL (83-110); Potassium 3.9 mmol/L (3.5-5.1); Sodium 136 mmol/L (136-145)
[2022-10-28] MEDS: CEFAZOLIN 1 GM in Sodium Chloride 0.9% 100 ML IVPB SCH ×3 (05:02→23:16)
[2022-10-28] MEDS: Mometasone 100 MCG/PUFF (1 INHALER) INH SCH ×2 (07:35→22:02)
[2022-10-28] MEDS: Famotidine 20 MG TAB PO SCH ×2 (09:12→20:37)
[2022-10-28] MEDS: Sacubitril 49 MG/Valsartan 51 MG TABLET PO SCH ×2 (09:12→20:36)
[2022-10-28] MEDS: cloNIDine 0.1 MG TAB PO SCH ×2 (09:12→20:36)
[2022-10-28] MEDS: Magnesium Oxide 400 MG TAB PO SCH (09:13)
[2022-10-28] MEDS: Carvedilol 6.25 MG TAB PO SCH ×2 (09:13→15:38)
[2022-10-28] MEDS: Senokot S 8.6-50 MG TAB PO SCH ×2 (09:13→20:37)
[2022-10-28] MEDS: Ezetimibe 10 MG TAB PO SCH (09:13)
[2022-10-28] MEDS: Spironolactone 25 MG TAB PO SCH ×2 (09:13→09:16)
[2022-10-28] MEDS: FLUoxetine HCl 20 MG CAP PO SCH (09:13)
[2022-10-28] MEDS: Finasteride 5 MG TAB PO SCH (09:16)
[2022-10-28] MEDS: hydrALAZINE 25 MG TAB PO SCH ×2 (12:23→20:37)
[2022-10-28] MEDS: Atorvastatin Calcium 40 MG TAB PO SCH (20:37)
[2022-10-28] MEDS: Tamsulosin HCl 0.4 MG CAP PO SCH (20:37)
[2022-10-28] MEDS: tiZANidine HCl 4 MG TAB PO PRN (20:40)
[2022-10-29 04:43] LABS: Anion Gap 13 mmol/L (10-20); BUN (Urea Nitrogen) 13 mg/dL (8.4-25.7); Calc. Creatinine Clearance 70 mL/min (70-130); Calcium 8.6 mg/dL (7.8-10.44); Carbon Dioxide 23 mmol/L (23-31); Chloride 105 mmol/L (98-107); Estimated GFR 62; Glucose 97 mg/dL (83-110); Potassium 3.9 mmol/L (3.5-5.1); Sodium 137 mmol/L (136-145)
[2022-10-29] MEDS: CEFAZOLIN 1 GM in Sodium Chloride 0.9% 100 ML IVPB SCH ×3 (06:17→21:54)
[2022-10-29] MEDS: Mometasone 100 MCG/PUFF (1 INHALER) INH SCH ×2 (06:53→18:21)
[2022-10-29] MEDS: Sacubitril 49 MG/Valsartan 51 MG TABLET PO SCH ×2 (07:43→21:55)
[2022-10-29] MEDS: Senokot S 8.6-50 MG TAB PO SCH ×2 (07:43→21:55)
[2022-10-29] MEDS: cloNIDine 0.1 MG TAB PO SCH ×2 (07:43→21:55)
[2022-10-29] MEDS: Finasteride 5 MG TAB PO SCH (07:44)
[2022-10-29] MEDS: Famotidine 20 MG TAB PO SCH ×2 (07:44→21:55)
[2022-10-29] MEDS: Magnesium Oxide 400 MG TAB PO SCH (07:44)
[2022-10-29] MEDS: FLUoxetine HCl 20 MG CAP PO SCH (07:44)
[2022-10-29] MEDS: Ezetimibe 10 MG TAB PO SCH (07:44)
[2022-10-29] MEDS: Carvedilol 6.25 MG TAB PO SCH ×2 (07:44→18:49)
[2022-10-29] MEDS: Spironolactone 25 MG TAB PO SCH (07:45)
[2022-10-29] MEDS: Aspirin 81 mg Enteric Coated Tablet PO SCH (07:47)
[2022-10-29] MEDS: hydrALAZINE 25 MG TAB PO SCH ×2 (13:39→21:55)
[2022-10-29] MEDS: Atorvastatin Calcium 40 MG TAB PO SCH (21:55)
[2022-10-29] MEDS: Tamsulosin HCl 0.4 MG CAP PO SCH (21:55)
[2022-10-30 04:55] LABS: Anion Gap 13 mmol/L (10-20); BUN (Urea Nitrogen) 13 mg/dL (8.4-25.7); Calc. Creatinine Clearance 72 mL/min (70-130); Calcium 8.5 mg/dL (7.8-10.44); Carbon Dioxide 23 mmol/L (23-31); Chloride 104 mmol/L (98-107); Estimated GFR 63; Glucose 97 mg/dL (83-110); Potassium 3.8 mmol/L (3.5-5.1); Sodium 136 mmol/L (136-145)
[2022-10-30] MEDS: CEFAZOLIN 1 GM in Sodium Chloride 0.9% 100 ML IVPB SCH ×3 (05:05→22:23)
[2022-10-30] MEDS: Mometasone 100 MCG/PUFF (1 INHALER) INH SCH ×2 (07:30→19:08)
[2022-10-30] MEDS: Aspirin 81 mg Enteric Coated Tablet PO SCH (09:45)
[2022-10-30] MEDS: Sacubitril 49 MG/Valsartan 51 MG TABLET PO SCH ×2 (09:52→22:24)
[2022-10-30] MEDS: FLUoxetine HCl 20 MG CAP PO SCH (09:52)
[2022-10-30] MEDS: Famotidine 20 MG TAB PO SCH ×2 (09:55→22:24)
[2022-10-30] MEDS: Senokot S 8.6-50 MG TAB PO SCH ×2 (09:56→22:24)
[2022-10-30] MEDS: Finasteride 5 MG TAB PO SCH (09:56)
[2022-10-30] MEDS: Ezetimibe 10 MG TAB PO SCH (09:56)
[2022-10-30] MEDS: Magnesium Oxide 400 MG TAB PO SCH (09:56)
[2022-10-30] MEDS: cloNIDine 0.1 MG TAB PO SCH ×2 (09:57→22:24)
[2022-10-30] MEDS: Carvedilol 6.25 MG TAB PO SCH ×2 (09:58→17:18)
[2022-10-30] MEDS: hydrALAZINE 25 MG TAB PO SCH ×2 (13:49→22:23)
[2022-10-30] MEDS: Atorvastatin Calcium 40 MG TAB PO SCH (22:24)
[2022-10-30] MEDS: Tamsulosin HCl 0.4 MG CAP PO SCH (22:24)
[2022-10-30] MEDS: Acetaminophen 500 MG TAB PO PRN (22:28)
[2022-10-31] MEDS: CEFAZOLIN 1 GM in Sodium Chloride 0.9% 100 ML IVPB SCH ×3 (06:00→21:00)
[2022-10-31] MEDS: Mometasone 100 MCG/PUFF (1 INHALER) INH SCH ×2 (07:32→19:13)
[2022-10-31] MEDS: Sacubitril 49 MG/Valsartan 51 MG TABLET PO SCH ×2 (08:16→20:56)
[2022-10-31] MEDS: Spironolactone 25 MG TAB PO SCH (08:16)
[2022-10-31] MEDS: FLUoxetine HCl 20 MG CAP PO SCH (08:17)
[2022-10-31] MEDS: Ezetimibe 10 MG TAB PO SCH (08:17)
[2022-10-31] MEDS: Carvedilol 6.25 MG TAB PO SCH ×2 (08:17→16:54)
[2022-10-31] MEDS: Famotidine 20 MG TAB PO SCH ×2 (08:17→20:57)
[2022-10-31] MEDS: cloNIDine 0.1 MG TAB PO SCH ×2 (08:18→20:58)
[2022-10-31] MEDS: Aspirin 81 mg Enteric Coated Tablet PO SCH (08:18)
[2022-10-31] MEDS: Finasteride 5 MG TAB PO SCH (08:18)
[2022-10-31] MEDS: Magnesium Oxide 400 MG TAB PO SCH (08:18)
[2022-10-31] MEDS: Senokot S 8.6-50 MG TAB PO SCH ×2 (08:19→20:57)
[2022-10-31] MEDS: hydrALAZINE 25 MG TAB PO SCH ×2 (12:41→20:57)
[2022-10-31] MEDS: Tamsulosin HCl 0.4 MG CAP PO SCH (20:56)
[2022-10-31] MEDS: Atorvastatin Calcium 40 MG TAB PO SCH (20:57)
[2022-11-01] MEDS: CEFAZOLIN 1 GM in Sodium Chloride 0.9% 100 ML IVPB SCH ×2 (05:36→13:16)
[2022-11-01] MEDS: Magnesium Oxide 400 MG TAB PO SCH (08:38)
[2022-11-01] MEDS: cloNIDine 0.1 MG TAB PO SCH (08:38)
[2022-11-01] MEDS: Spironolactone 25 MG TAB PO SCH (08:38)
[2022-11-01] MEDS: Aspirin 81 mg Enteric Coated Tablet PO SCH ×2 (08:38→08:54)
[2022-11-01 08:44] VITALS: BP 120/70
[2022-11-01] MEDS: Ezetimibe 10 MG TAB PO SCH (08:44)
[2022-11-01] MEDS: Senokot S 8.6-50 MG TAB PO SCH (08:44)
[2022-11-01] MEDS: Finasteride 5 MG TAB PO SCH (08:44)
[2022-11-01] MEDS: Carvedilol 6.25 MG TAB PO SCH (08:44)
[2022-11-01] MEDS: FLUoxetine HCl 20 MG CAP PO SCH (08:45)
[2022-11-01] MEDS: Sacubitril 49 MG/Valsartan 51 MG TABLET PO SCH (08:45)
[2022-11-01] MEDS: Famotidine 20 MG TAB PO SCH (08:45)
[2022-11-01] MEDS: Mometasone 100 MCG/PUFF (1 INHALER) INH SCH (11:07)
[2022-11-01 12:15] VITALS: TEMP 97.8
== END 2022-11-01 14:55 | disposition home health service (06) | DRG 28 ==
LOC: ERS 06:18 → ERHOLD 09:36 → NEURO 17:55 → CCU 10-17 08:56 → IMCU/EMU 10-19 19:19 → SURG B 10-20 13:18 → IMCU/EMU 10-22 11:10
PROVIDERS: ADMIT Family Medicine; ATTEND Internal Medicine
PROC: 3E03329 Introduction of Other Anti-infective into Peripheral Vein, Percutaneous Approach (ICD-10-PCS; 2022-10-14)
PROC: 00QT0ZZ Repair Spinal Meninges, Open Approach (ICD-10-PCS; principal; 2022-10-17)
PROC: 009Y3ZZ Drainage of Lumbar Spinal Cord, Percutaneous Approach (ICD-10-PCS; 2022-10-22)
DX: G97.82 Other postprocedural complications and disorders of nervous system (principal); A41.01 Sepsis due to Methicillin susceptible Staphylococcus aureus; G06.1 Intraspinal abscess and granuloma; G96.09 Other spinal cerebrospinal fluid leak; I16.1 Hypertensive emergency; I50.22 Chronic systolic (congestive) heart failure; J44.1 Chronic obstructive pulmonary disease with (acute) exacerbation; I47.29 Other ventricular tachycardia; G44.40 Drug-induced headache, not elsewhere classified, not intractable; G96.198 Other disorders of meninges, not elsewhere classified; E78.00 Pure hypercholesterolemia, unspecified; I25.10 Atherosclerotic heart disease of native coronary artery without angina pectoris; M71.121 Other infective bursitis, right elbow; I11.0 Hypertensive heart disease with heart failure; E78.5 Hyperlipidemia, unspecified; Y82.8 Other medical devices associated with adverse incidents; T88.59XA Other complications of anesthesia, initial encounter; M10.9 Gout, unspecified; N40.0 Benign prostatic hyperplasia without lower urinary tract symptoms; I25.5 Ischemic cardiomyopathy; K59.00 Constipation, unspecified; E87.6 Hypokalemia; E83.42 Hypomagnesemia; Z95.1 Presence of aortocoronary bypass graft; Z79.899 Other long term (current) drug therapy; Z79.51 Long term (current) use of inhaled steroids
CPT/HCPCS: 36415; 36416; 70450; 71045; 72158; 80048; 80053; 80202; 81015; 83735; 83880; 84484; 85025; 85610; 85652; 85730; 86140; 86335; 87070; 87205; 93005; 93010; 93970; 94640; 96365; 96372; 96375; 97139; A9579; C1889; J0360; J0690; J0692; J1100; J1200; J1650; J1885; J2001; J2270; J2272; J2405; J2704; J2765; J3010; J3370; J3370-JW; J3475; J3490; J7050; J7611; J7620

== ENCOUNTER 2022-11-21 13:44 | Emergency (ER) | payer MEDICARE ==
[2022-11-21 14:46] LABS: #Eosinphils 0.1 thou/uL (0.0-0.7); #Monocytes 0.3 thou/uL (0.11-0.59); #Neutrophils 2.9 thou/uL (1.40-6.50); %Basophils 0.8 % (0.0-1.0); %Eosinophils 2.7 % (0.0-10.0); %Lymphocytes 34.6 % (21.0-51.0); %Monocytes 6.4 % (0.0-10.0); %Neutrophils 55.3 % (42.0-75.0); Hemoglobin 8.6 g/dL (14.0-18.0); Mean Corpuscular HGB CONC 31.5 g/dL (32.0-36.0); Mean Corpuscular Hemoglobin 29.8 pg (27.0-31.0); Mean Corpuscular Volume 94.5 fl (78.0-98.0); Mean Platelet Volume 10.2 fL (7.4-10.4); Platelet Count 238 10x3/uL (130-400); RBC Distribution Width 13.4 % (11.5-14.5); Red Blood Cell (RBC) Count 2.89 mill/uL (4.70-6.10); White Blood Cell (WBC) Count 5.2 10x3/uL (4.8-10.8)
[2022-11-21 15:19] LABS: ALT (SGPT) 11 U/L (8-55); AST (SGOT) 17 U/L (5-34); Albumin 3.2 g/dL (3.4-4.8); Alkaline Phosphatase 269 U/L (40-110); Anion Gap 15 mmol/L (10-20); BUN (Urea Nitrogen) 24 mg/dL (8.4-25.7); Bilirubin, Total 0.7 mg/dL (0.2-1.2); Calc. Creatinine Clearance 0 mL/min (70-130); Calcium 8.9 mg/dL (7.8-10.44); Carbon Dioxide 23 mmol/L (23-31); Chloride 108 mmol/L (98-107); Estimated GFR 20; Globulin 4.1 g/dL (2.4-3.5); Glucose 89 mg/dL (83-110); Magnesium 1.4 mg/dL (1.6-2.6); Protein, Total 7.3 g/dL (5.8-8.1); Sodium 142 mmol/L (136-145)
[2022-11-21 16:02] LABS: Bacteria/HPF None Seen HPF (None Seen); Bilirubin Negative (Negative); Blood, Urine 3+ (Negative); Clarity Clear (Clear); Glucose, Urine (Dipstick) Normal (Negative); Ketone, Urine Negative (Negative); Leukocyte Negative Leu/uL (Negative); Nitrite Negative (Negative); Protein, Urine (Dipstick) 50 mg/dL (Neg-Trace); RBC/HPF Greater than 50 HPF (0-3); Specific Gravity, Urine 1.006 (1.002-1.036); Squamous Epithelial 0-3 HPF (0-3); Urobilinogen Normal mg/dL (Less than 2); WBC/HPF 0-3 HPF (0-3); pH, Urine 5.5 (5.0-9.0)
[2022-11-21 17:33] LABS: Anion Gap 14 mmol/L (10-20); BUN (Urea Nitrogen) 23 mg/dL (8.4-25.7); Calc. Creatinine Clearance 0 mL/min (70-130); Calcium 8.6 mg/dL (7.8-10.44); Carbon Dioxide 19 mmol/L (23-31); Chloride 111 mmol/L (98-107); Estimated GFR 21; Glucose 75 mg/dL (83-110); Potassium 4.2 mmol/L (3.5-5.1); Sodium 140 mmol/L (136-145)
== END 2022-11-21 18:11 | disposition home or self-care (01) ==
LOC: ERS 13:44
DX: N17.9 Acute kidney failure, unspecified (principal); R31.9 Hematuria, unspecified; R80.9 Proteinuria, unspecified; I10 Essential (primary) hypertension; E78.00 Pure hypercholesterolemia, unspecified; J44.9 Chronic obstructive pulmonary disease, unspecified; Z87.891 Personal history of nicotine dependence; Z79.899 Other long term (current) drug therapy
CPT/HCPCS: 36415; 80053; 81003; 81015; 83735; 85025; 96360

== ENCOUNTER 2025-06-28 15:16 | Inpatient (IN) | payer MEDICARE ==
[2025-06-28] MEDS ORDERED: Nitroglycerin 0.4 MG TAB (25 Tab Bottle) SL PRN (18:00)
[2025-06-28] MEDS ORDERED: Nitroglycerin 50 MG/250 ML BOT 250 ML IVPB SCH (18:00)
[2025-06-28] MEDS ORDERED: Heparin 10,000 UNITS/ 10 ML VIAL SLOW IVP SCH (18:00)
[2025-06-28 18:02] VITALS: BMI 25.6
[2025-06-28 18:44] LABS: Hematocrit 41.5 % (42.0-52.0); Hemoglobin 13.8 g/dL (14.0-18.0); Platelet Count 285 10x3/uL (130-400)
[2025-06-28 18:45] LABS: #Basophils Less than 0.03 10x3/uL (0.0-0.2); #Eosinophils Less than 0.03 10x3/uL (0.0-0.7); #Monocytes 0.25 10x3/uL (0.11-0.59); #Neutrophils 4.83 10x3/uL (1.40-6.50); %Basophils 0.2 % (0.0-1.0); %Eosinophils 0.0 % (0.0-10.0); %Lymphocytes 14.0 % (21.0-51.0); %Monocytes 4.2 % (0.0-10.0); %Neutrophils 80.8 % (42.0-75.0); Hematocrit 41.7 % (42.0-52.0); Hemoglobin 14.1 g/dL (14.0-18.0); Mean Corpuscular Hemoglobin 29.5 pg (27.0-31.0); Mean Corpuscular Volume 87.2 fL (78.0-98.0); Platelet Count 274 10x3/uL (130-400); Red Blood Cell (RBC) Count 4.78 mill/uL (4.70-6.10); White Blood Cell (WBC) Count 5.98 10x3/uL (4.8-10.8)
[2025-06-28 19:03] LABS: ALT (SGPT) 7 U/L (Less than 45); AST (SGOT) 20 U/L (11-34); Albumin 3.7 g/dL (3.1-4.5); Alkaline Phosphatase 104 U/L (40-110); Anion Gap 14 mmol/L (10-20); BUN (Urea Nitrogen) 25 mg/dL (8.4-25.7); Bilirubin, Total 0.7 mg/dL (0.3-1.2); Calc. Creatinine Clearance 42 mL/min (70-130); Calcium 9.4 mg/dL (7.8-10.44); Carbon Dioxide 22 mmol/L (23-31); Chloride 107 mmol/L (98-107); Globulin 3.2 g/dL (2.4-3.5); Glucose 131 mg/dL (83-110); Potassium 4.1 mmol/L (3.5-5.1); Sodium 139 mmol/L (136-145)
[2025-06-28 19:08] LABS: PTT 67.8 sec (22.9-36.1)
[2025-06-28 19:10] LABS: D-Dimer Test 0.39 mcg/mL (0.27-0.43)
[2025-06-29 05:02] LABS: INR-International Normal Ratio 1.1; Prothrombin Time 14.2 sec (12.0-14.7)
[2025-06-29 05:03] LABS: PTT 64.3 sec (22.9-36.1)
[2025-06-29 05:13] LABS: Cardiac Risk 4.0 (Less than 4.5); Cholesterol 124.0 mg/dl (< 200 Desired); HDL Cholesterol 31.0 mg/dL (>60 Neg Risk); LDL Cholesterol, Calculated 79.0 mg/dL; Triglycerides 71.0 mg/dL (Less than 150)
[2025-06-29 06:57] LABS: Anion Gap 8 mmol/L (10-20); BUN (Urea Nitrogen) 28 mg/dL (8.4-25.7); Calc. Creatinine Clearance 42 mL/min (70-130); Calcium 8.9 mg/dL (7.8-10.44); Carbon Dioxide 20 mmol/L (23-31); Chloride 111 mmol/L (98-107); Glucose 102 mg/dL (83-110); Potassium 4.0 mmol/L (3.5-5.1); Sodium 135 mmol/L (136-145)
[2025-06-29 10:21] LABS: #Basophils 0.05 10x3/uL (0.0-0.2); #Eosinophils 0.06 10x3/uL (0.0-0.7); #Monocytes 0.56 10x3/uL (0.11-0.59); #Neutrophils 7.72 10x3/uL (1.40-6.50); %Basophils 0.5 % (0.0-1.0); %Eosinophils 0.6 % (0.0-10.0); %Lymphocytes 16.3 % (21.0-51.0); %Monocytes 5.6 % (0.0-10.0); %Neutrophils 76.5 % (42.0-75.0); Hematocrit 39.9 % (42.0-52.0); Hemoglobin 13.2 g/dL (14.0-18.0); Mean Corpuscular Hemoglobin 29.4 pg (27.0-31.0); Mean Corpuscular Volume 88.9 fL (78.0-98.0); Platelet Count 265 10x3/uL (130-400); Red Blood Cell (RBC) Count 4.49 mill/uL (4.70-6.10); White Blood Cell (WBC) Count 10.08 10x3/uL (4.8-10.8)
[2025-06-29] MEDS: Aspirin Chewable 81 MG TAB PO SCH (12:30)
[2025-06-29] MEDS: Carvedilol 6.25 MG TAB PO SCH (12:30)
[2025-06-29] MEDS ORDERED: Albuterol 2.5 MG (3 mL) NEB NEB PRN (16:08)
[2025-06-29] MEDS: Mometasone 200 MCG/Formoterol 5 MCG 120 PUFF INHALER INH SCH (19:36)
[2025-06-30 04:06] LABS: #Basophils 0.04 10x3/uL (0.0-0.2); #Eosinophils 0.11 10x3/uL (0.0-0.7); #Monocytes 0.35 10x3/uL (0.11-0.59); #Neutrophils 4.51 10x3/uL (1.40-6.50); %Basophils 0.7 % (0.0-1.0); %Eosinophils 1.8 % (0.0-10.0); %Lymphocytes 16.1 % (21.0-51.0); %Monocytes 5.8 % (0.0-10.0); %Neutrophils 75.1 % (42.0-75.0); Hematocrit 38.7 % (42.0-52.0); Hemoglobin 12.6 g/dL (14.0-18.0); Mean Corpuscular Hemoglobin 29.2 pg (27.0-31.0); Mean Corpuscular Volume 89.8 fL (78.0-98.0); Platelet Count 200 10x3/uL (130-400); Red Blood Cell (RBC) Count 4.31 mill/uL (4.70-6.10); White Blood Cell (WBC) Count 6.01 10x3/uL (4.8-10.8)
[2025-06-30 04:36] LABS: ALT (SGPT) 10 U/L (Less than 45); AST (SGOT) 20 U/L (11-34); Albumin 3.3 g/dL (3.1-4.5); Alkaline Phosphatase 85 U/L (40-110); Anion Gap 10 mmol/L (10-20); BUN (Urea Nitrogen) 33 mg/dL (8.4-25.7); Bilirubin, Total 0.5 mg/dL (0.3-1.2); Calc. Creatinine Clearance 40 mL/min (70-130); Calcium 8.8 mg/dL (7.8-10.44); Carbon Dioxide 23 mmol/L (23-31); Chloride 110 mmol/L (98-107); Globulin 2.7 g/dL (2.4-3.5); Glucose 88 mg/dL (83-110); Potassium 4.2 mmol/L (3.5-5.1); Sodium 139 mmol/L (136-145)
[2025-06-30] MEDS ORDERED: Communication Order-Pharmacy FS SCH (17:45)
[2025-07-01 04:19] LABS: #Basophils 0.04 10x3/uL (0.0-0.2); #Eosinophils 0.18 10x3/uL (0.0-0.7); #Monocytes 0.50 10x3/uL (0.11-0.59); #Neutrophils 2.89 10x3/uL (1.40-6.50); %Basophils 0.8 % (0.0-1.0); %Eosinophils 3.6 % (0.0-10.0); %Lymphocytes 26.4 % (21.0-51.0); %Monocytes 10.1 % (0.0-10.0); %Neutrophils 58.3 % (42.0-75.0); Hematocrit 40.4 % (42.0-52.0); Hemoglobin 12.9 g/dL (14.0-18.0); Mean Corpuscular Hemoglobin 29.2 pg (27.0-31.0); Mean Corpuscular Volume 91.4 fL (78.0-98.0); Platelet Count 219 10x3/uL (130-400); Red Blood Cell (RBC) Count 4.42 mill/uL (4.70-6.10); White Blood Cell (WBC) Count 4.96 10x3/uL (4.8-10.8)
[2025-07-01 04:44] LABS: ALT (SGPT) 12 U/L (Less than 45); AST (SGOT) 21 U/L (11-34); Albumin 3.4 g/dL (3.1-4.5); Alkaline Phosphatase 82 U/L (40-110); Anion Gap 14 mmol/L (10-20); BUN (Urea Nitrogen) 31 mg/dL (8.4-25.7); Bilirubin, Total 0.7 mg/dL (0.3-1.2); Calc. Creatinine Clearance 39 mL/min (70-130); Calcium 8.9 mg/dL (7.8-10.44); Carbon Dioxide 22 mmol/L (23-31); Chloride 108 mmol/L (98-107); Globulin 2.7 g/dL (2.4-3.5); Glucose 87 mg/dL (83-110); Potassium 3.9 mmol/L (3.5-5.1); Sodium 140 mmol/L (136-145)
[2025-07-01] MEDS ORDERED: Nitroglycerin 50 MG/250 ML BOT 0 ML ONE (06:17)
[2025-07-01] MEDS ORDERED: Adenosine 6 mg (2 mL) VIAL ONE (06:17)
[2025-07-01] MEDS ORDERED: Heparin 10,000 UNITS/ 10 ML VIAL ONE (06:17)
[2025-07-01] MEDS ORDERED: Lidocaine 1% (PF) 30 ML VIAL ONE (06:17)
[2025-07-01] MEDS ORDERED: Ondansetron PF 4 MG/2 ML Vial ONE (07:36)
[2025-07-01] MEDS: Acetaminophen/Codeine 30-300mg Tablet PO SCH (09:41)
[2025-07-01] MEDS ORDERED: Iopamidol 370 76% 100 ML VIAL ONE (13:05)
[2025-07-02 04:47] LABS: #Basophils 0.03 10x3/uL (0.0-0.2); #Eosinophils 0.19 10x3/uL (0.0-0.7); #Monocytes 0.39 10x3/uL (0.11-0.59); #Neutrophils 3.06 10x3/uL (1.40-6.50); %Basophils 0.7 % (0.0-1.0); %Eosinophils 4.2 % (0.0-10.0); %Lymphocytes 18.7 % (21.0-51.0); %Monocytes 8.6 % (0.0-10.0); %Neutrophils 67.1 % (42.0-75.0); Hematocrit 38.8 % (42.0-52.0); Hemoglobin 12.3 g/dL (14.0-18.0); Mean Corpuscular Hemoglobin 29.6 pg (27.0-31.0); Mean Corpuscular Volume 93.3 fL (78.0-98.0); Platelet Count 190 10x3/uL (130-400); Red Blood Cell (RBC) Count 4.16 mill/uL (4.70-6.10); White Blood Cell (WBC) Count 4.55 10x3/uL (4.8-10.8)
[2025-07-02 04:57] LABS: ALT (SGPT) 13 U/L (Less than 45); AST (SGOT) 26 U/L (11-34); Albumin 3.2 g/dL (3.1-4.5); Alkaline Phosphatase 81 U/L (40-110); Anion Gap 12 mmol/L (10-20); BUN (Urea Nitrogen) 24 mg/dL (8.4-25.7); Bilirubin, Total 0.7 mg/dL (0.3-1.2); Calc. Creatinine Clearance 46 mL/min (70-130); Calcium 8.7 mg/dL (7.8-10.44); Carbon Dioxide 23 mmol/L (23-31); Chloride 110 mmol/L (98-107); Globulin 2.5 g/dL (2.4-3.5); Glucose 84 mg/dL (83-110); Potassium 4.5 mmol/L (3.5-5.1); Sodium 140 mmol/L (136-145)
[2025-07-02] MEDS ORDERED: Lidocaine 1% (PF) 30 ML VIAL ONE (11:58)
[2025-07-02] MEDS ORDERED: Heparin 10,000 UNITS/ 10 ML VIAL ONE (11:58)
[2025-07-02] MEDS ORDERED: Nitroglycerin 50 MG/250 ML BOT 0 ML ONE (11:59)
[2025-07-02] MEDS ORDERED: Iopamidol 370 76% 100 ML VIAL ONE (12:52)
[2025-07-02] MEDS ORDERED: Ondansetron PF 4 MG/2 ML Vial ONE (13:30)
[2025-07-02] MEDS ORDERED: diphenhydrAMINE 50 MG/ML VIAL ONE (13:56)
[2025-07-02] MEDS ORDERED: HYDROmorphone 0.5 MG/0.5 ML SYRINGE ONE (14:35)
[2025-07-03 04:49] LABS: #Basophils Less than 0.03 10x3/uL (0.0-0.2); #Eosinophils 0.12 10x3/uL (0.0-0.7); #Monocytes 0.43 10x3/uL (0.11-0.59); #Neutrophils 2.91 10x3/uL (1.40-6.50); %Basophils 0.5 % (0.0-1.0); %Eosinophils 2.7 % (0.0-10.0); %Lymphocytes 19.7 % (21.0-51.0); %Monocytes 9.8 % (0.0-10.0); %Neutrophils 66.6 % (42.0-75.0); Hematocrit 36.2 % (42.0-52.0); Hemoglobin 11.8 g/dL (14.0-18.0); Mean Corpuscular Hemoglobin 29.1 pg (27.0-31.0); Mean Corpuscular Volume 89.4 fL (78.0-98.0); Platelet Count 200 10x3/uL (130-400); Red Blood Cell (RBC) Count 4.05 mill/uL (4.70-6.10); White Blood Cell (WBC) Count 4.37 10x3/uL (4.8-10.8)
[2025-07-03 05:10] LABS: ALT (SGPT) 13 U/L (Less than 45); AST (SGOT) 20 U/L (11-34); Albumin 3.1 g/dL (3.1-4.5); Alkaline Phosphatase 81 U/L (40-110); Anion Gap 12 mmol/L (10-20); BUN (Urea Nitrogen) 19 mg/dL (8.4-25.7); Bilirubin, Total 0.7 mg/dL (0.3-1.2); Calc. Creatinine Clearance 50 mL/min (70-130); Calcium 8.5 mg/dL (7.8-10.44); Carbon Dioxide 21 mmol/L (23-31); Chloride 108 mmol/L (98-107); Globulin 2.6 g/dL (2.4-3.5); Glucose 120 mg/dL (83-110); Potassium 3.6 mmol/L (3.5-5.1); Sodium 137 mmol/L (136-145)
[2025-07-03] MEDS: FLU (Fluad Triv) 25-26 (65UP)PF 45 MCG/0.5 ML Syringe IM ONE (10:26)
[2025-07-03] MEDS: PNEUMOC 20-VAL CONJ-DIP CRM/PF 0.5 ML SYRINGE IM ONE (10:26)
[2025-07-03 12:00] VITALS: BP 124/64; TEMP 96.7
[2025-07-03] MEDS: Furosemide 40 MG (4 mL) VIAL SLOW IVP SCH (12:58)
[2025-07-03] MEDS: Pantoprazole 40 MG DR.TAB PO SCH (12:58)
[2025-07-04] MEDS ORDERED: Pantoprazole 40 MG DR.TAB PO SCH (09:00)
== END 2025-07-03 16:50 | disposition home or self-care (01) | DRG 321 ==
LOC: 2NO 17:09
PROVIDERS: ADMIT Family Medicine; ATTEND Internal Medicine
PROC: 3E02340 Introduction of Influenza Vaccine into Muscle, Percutaneous Approach (ICD-10-PCS; 2025-06-28)
PROC: 3E0234Z Introduction of Serum, Toxoid and Vaccine into Muscle, Percutaneous Approach (ICD-10-PCS; 2025-06-28)
PROC: 027034Z Dilation of Coronary Artery, One Artery with Drug-eluting Intraluminal Device, Percutaneous Approach (ICD-10-PCS; principal; 2025-07-02)
PROC: B2131ZZ Fluoroscopy of Multiple Coronary Artery Bypass Grafts using Low Osmolar Contrast (ICD-10-PCS; 2025-07-02)
PROC: B2111ZZ Fluoroscopy of Multiple Coronary Arteries using Low Osmolar Contrast (ICD-10-PCS; 2025-07-02)
PROC: B2151ZZ Fluoroscopy of Left Heart using Low Osmolar Contrast (ICD-10-PCS; 2025-07-02)
PROC: 4A023N7 Measurement of Cardiac Sampling and Pressure, Left Heart, Percutaneous Approach (ICD-10-PCS; 2025-07-02)
DX: I25.719 Atherosclerosis of autologous vein coronary artery bypass graft(s) with unspecified angina pectoris (principal); I21.A1 Myocardial infarction type 2; G83.4 Cauda equina syndrome; J44.1 Chronic obstructive pulmonary disease with (acute) exacerbation; I13.0 Hypertensive heart and chronic kidney disease with heart failure and stage 1 through stage 4 chronic kidney disease, or unspecified chronic kidney disease; I50.22 Chronic systolic (congestive) heart failure; N17.9 Acute kidney failure, unspecified; R07.9 Chest pain, unspecified; I25.5 Ischemic cardiomyopathy; I25.10 Atherosclerotic heart disease of native coronary artery without angina pectoris; N18.30 Chronic kidney disease, stage 3 unspecified; E78.5 Hyperlipidemia, unspecified; M54.50 Low back pain, unspecified; E66.9 Obesity, unspecified; D63.1 Anemia in chronic kidney disease; Z95.1 Presence of aortocoronary bypass graft; Z98.890 Other specified postprocedural states; Z87.891 Personal history of nicotine dependence; Z68.25 Body mass index [BMI] 25.0-25.9, adult; Z23 Encounter for immunization
CPT/HCPCS: 36415; 36416; 71045; 72100; 78452; 80048; 80053; 80061; 83036; 83880; 84484; 85014; 85018; 85025; 85049; 85347; 85379; 85610; 85730; 92937; 93005; 93010; 93017; 93306; 93455; 93798; 94640; 94664; 94760; 99152; 99153; A9502; C1725; C1769; C1874; C1887; C1894; C9604; J0153; J1171; J1200; J1644; J1940; J2003; J2250; J2270; J2405; J2785; J3010; J7030; Q9967